=== PATIENT | male | born 1990 | race Caucasian/White ===

== ENCOUNTER 2016-10-02 14:42 | Emergency (ER) | payer BC ==
[2016-10-02 15:08] VITALS: RESP 18
[2016-10-02] MEDS ORDERED: PANTOPRAZOLE 40 MG/10 ML VIAL IVP STA (15:24)
[2016-10-02] MEDS ORDERED: MAG HYDROX/AL HYDROX/SIMETH 30 ML, HYOSCYAMINE ELIXIR 10 ML, CIMETIDINE HCL 300 MG, LID... PO STA ×4 (15:26)
[2016-10-02 15:42] LABS: Basophils % (A) 0 %; CHCM 33.7; Eosinophils # (A) 0.1 k/uL (0-0.7); Eosinophils % (A) 1 %; HCT 47.7 % (39.0-53.0); HDW 2.41; HGB 15.9 gm/dL (13.0-17.5); Luc # (Auto) 0.12; Luc % (Auto) 1; Lymphocytes % (A) 11 %; MCH 29.8 pg (25.0-35.0); MCHC 33.4 g/dL (31.0-37.0); MCV 89.2 fL (80.0-100.0); Mean Platelet Volume 7.5; Monocytes # (A) 0.4 k/uL (0-1.0); Monocytes % (A) 4 %; Neutrophils # (A) 7.5 k/uL (1.3-7.7); Neutrophils % (A) 83 %; RBC 5.34 m/uL (4.30-5.90); RDW 12.9 % (11.5-15.5); WBC (Perox) 9.25
[2016-10-02 15:55] LABS: Prothrombin Time 10.2 sec (9.0-12.0)
[2016-10-02 15:57] LABS: ALT 107 U/L (21-72); AST 43 U/L (17-59); Alkaline Phosphatase 69 U/L (38-126); Amylase 52 U/L (30-110); Anion Gap 11 mmol/L; Blood Urea Nitrogen 11 mg/dL (9-20); Calcium 10.1 mg/dL (8.4-10.2); Carbon Dioxide 28 mmol/L (22-30); Chloride 103 mmol/L (98-107); Creatine Kinase 107 U/L (55-170); Glucose 112 mg/dL (74-99); Magnesium 1.7 mg/dL (1.6-2.3); Non-African American GFR(MDRD) >60 (>60 ml/min/1.73 sqM); Potassium 4.5 mmol/L (3.5-5.1); Sodium 142 mmol/L (137-145); Total Bilirubin 0.5 mg/dL (0.2-1.3); Total Protein 7.2 g/dL (6.3-8.2)
--- NOTE | 2016-10-02 15:58 | XR ---
EXAMINATION TYPE: XR chest 2V DATE OF EXAM: 10/02/2016 3:55 PM HISTORY: Chest Pain. REFERENCE: NONE. FINDINGS: The lungs are clear. Pleural spaces are clear. Heart size is upper limits of normal. IMPRESSION: NO ACUTE INTRATHORACIC ABNORMALITY.
[2016-10-02 16:11] LABS: Creatine Kinase MB 0.9 ng/mL (0.0-2.4); Troponin I <0.012 ng/mL (0.000-0.034)
[2016-10-02 16:24] VITALS: BP 148/71; PULSE 60; TEMP 97.8
--- NOTE | 2016-10-02 16:47 | ED ---
Chest Pain HPI - General Chief Complaint: Chest Pain Stated Complaint: chest pain-[facility] Time Seen by Provider: 10/02/16 14:57 Source: patient Mode of arrival: ambulatory - History of Present Illness Initial Comments: This 26-year-old white male presents with the complaint of some lower sternal chest pain which describes as a burning type sensation. He states that it occurred at approximately 11:30 AM. He states that it occurred shortly after eating some spicy food. He also drank 5 beers last night. He states that it feels like heartburn. He denies any previous similar incidents. He is not utilize any nonsteroidal anti-inflammatory medications. He denies any actual abdominal pain or shortness of breath. There is no radiation of the pain. He denies any other complaints or modifying factors. - Related Data Previous Rx's Medication Instructions Recorded Omeprazole [PriLOSEC] 40 mg PO DAILY #30 capsule. 10/02/16 Allergies Allergy/AdvReac Type Severity Reaction Status Date / Time No Known Allergies Allergy Verified 10/02/16 15:13 Review of Systems ROS Statement: Those systems with pertinent positive or pertinent negative responses have been documented in the HPI. ROS Other: All systems not noted in ROS Statement are negative. Past Medical History Past Medical History: No Reported History History of Any Multi-Drug Resistant Organisms: None Reported Past Surgical History: Orthopedic Surgery Additional Past Surgical History / Comment(s): bilateral knee, Past Psychological History: No Psychological Hx Reported Smoking Status: Never smoker Past Alcohol Use History: Occasional Past Drug Use History: None Reported General Exam - General Exam Comments Initial Comments: GENERAL: The patient is well nourished and well hydrated. VITAL SIGNS: Heart rate, blood pressure, respiratory rate reviewed as recorded in nurse's notes. EYES: Pupils are round and reactive. Extraocular movements are intact. No conjunctival / lid redness or swelling. ENT: No external evidence of injury, swelling, or ecchymosis. Airway is patent. Throat is clear. NECK: Nontender. No swelling or evidence of injury. No subcutaneous emphysema. Trachea is midline. No thyroid mass. HEART: Regular rate and rhythm. Good peripheral pulses. LUNGS/CHEST: Breath sounds clear and equal bilaterally. No rales, rhonchi, or wheezes. No ecchymosis, subcutaneous emphysema, or tenderness. ABDOMEN: Abdomen soft without tenderness. No palpable masses or organomegaly. No peritoneal signs. No abdominal wall swelling or ecchymosis. EXTREMITIES: No extremity tenderness. Normal muscle tone and function. No thoracolumbar tenderness. NEUROLOGIC: Sensation is grossly intact. Cranial nerve exam reveals face is symmetrical, tongue is midline, speech is clear. SKIN: No abrasions or ecchymosis is noted. No induration or masses noted. PSYCHIATRIC: Alert and oriented. Appropriate behavior and judgment. Course Vital Signs 10/02/16 10/02/16 14:58 16:23 Temperature 98.0 F 97.8 F Pulse Rate 70 60 Respiratory 18 18 Rate Blood Pressure 169/88 148/71 O2 Sat by Pulse 100 98 Oximetry Chest Pain MDM - MDM The patient was seen and examined. All diagnostics were reviewed. An EKG was done which shows a normal sinus rhythm with a sinus arrhythmia at a rate of 65. There is no acute ST-T wave changes identified. The DC interval is 180, QS duration is 110, and the QTc interval is 413. The patient had a chest x-ray which did not show any acute abnormalities. The laboratory is all essentially within normal limits. He did receive some Protonix IV as well as a GI cocktail and some IV fluids. He is feeling remarkably improved on recheck. He states that the pain has resolved. Is not felt as though his symptoms are related to a cardiac etiology. It is felt as though it's likely related to some reflux and /or gastritis. His felt as though he stable for discharge. He is counseled regarding need to avoid any alcohol and spicy foods. He leaves in no identifiable distress. Disposition Clinical Impression: Chest pain, GERD (gastroesophageal reflux disease), Hypertension Disposition: HOME SELF-CARE Condition: Good Instructions: Chest Pain (ED), Gastroesophageal Reflux Disease (ED), Hypertension (ED) Prescriptions: Omeprazole [PriLOSEC] 40 mg PO DAILY #30 capsule.dr Referrals: Isaias Nguyen MD [Primary Care Provider] - 1-2 days Time of Disposition: 16:45
== END 2016-10-02 19:00 | disposition home or self-care (01) ==
LOC: EC 14:42
DX: R07.2 Precordial pain (principal); K21.9 Gastro-esophageal reflux disease without esophagitis; I10 Essential (primary) hypertension
CPT/HCPCS: 36415; 93005; 80053; 82150; 82550; 82553; 83690; 83735; 84484; 85025; 85610; 85730; 71020; 99285; 96374; C9113

== ENCOUNTER 2016-12-10 05:42 | Emergency (ER) | payer BC ==
[2016-12-10 05:49] VITALS: TEMP 97.7
[2016-12-10] MEDS ORDERED: MAG HYDROX/AL HYDROX/SIMETH 30 ML, HYOSCYAMINE ELIXIR 10 ML, CIMETIDINE HCL 300 MG PO STA ×3 (06:09)
--- NOTE | 2016-12-10 06:18 | ED ---
General Adult HPI - General Chief complaint: Chest Pain Stated complaint: Chest pain Time Seen by Provider: 12/10/16 06:00 Source: patient, RN notes reviewed Mode of arrival: wheelchair Limitations: no limitations - History of Present Illness Initial comments: This is a 26-year-old male who presents emergency department after having had some epigastric versus lower chest discomfort patient describes it as a burning sensation. Patient states he ate pizza later tonight had a couple of beers late at night. Patient states he woke up about 2:00 morning and some burning sensation in his chest so he took some tablets that were similar to Tums. Patient states shortly thereafter he ate an apple because he thought someone told him eating an apple would help. Patient states then he vomited and then the burning sensation was much worse. Patient denies any difficulty breathing or shortness of breath. Patient denies any recent fever chills or cough. Patient denies any radiation of the pain. Patient states she was here recently for similar and was diagnosed with gastric esophageal reflux. - Related Data Previous Rx's Medication Instructions Recorded Famotidine [Pepcid] 20 mg PO DAILY #10 tablet 12/10/16 Allergies Allergy/AdvReac Type Severity Reaction Status Date / Time No Known Allergies Allergy Verified 12/10/16 05:48 Review of Systems ROS Statement: Those systems with pertinent positive or pertinent negative responses have been documented in the HPI. ROS Other: All systems not noted in ROS Statement are negative. Past Medical History Past Medical History: No Reported History History of Any Multi-Drug Resistant Organisms: None Reported Past Surgical History: Orthopedic Surgery Additional Past Surgical History / Comment(s): bilateral knee, Past Psychological History: No Psychological Hx Reported Smoking Status: Never smoker Past Alcohol Use History: Occasional Past Drug Use History: None Reported General Exam - General Exam Comments Initial Comments: GENERAL: Patient is well-developed and well-nourished. Patient is nontoxic and well- hydrated and is in mild distress. ENT: Neck is soft and supple. No significant lymphadenopathy is noted. Oropharynx is clear. Moist mucous membranes. Neck has full range of motion without eliciting any pain. EYES: The sclera were anicteric and conjunctiva were pink and moist. Extraocular movements were intact and pupils were equal round and reactive to light. Eyelids were unremarkable. PULMONARY: Unlabored respirations. Good breath sounds bilaterally. No audible rales rhonchi or wheezing was noted. CARDIOVASCULAR: There is a regular rate and rhythm without any murmurs gallops or rubs. ABDOMEN: Soft and nontender with normal bowel sounds. No palpable organomegaly was noted. There is no palpable pulsatile mass. SKIN: Skin is clear with no lesions or rashes and otherwise unremarkable. NEUROLOGIC: Patient is alert and oriented x3. Cranial nerves II through XII are grossly intact. Motor and sensory are also intact. Normal speech, volume and content. Symmetrical smile. MUSCULOSKELETAL: Normal extremities with adequate strength and full range of motion. LYMPHATICS: No significant lymphadenopathy is noted PSYCHIATRIC: Normal psychiatric evaluation. Normal interpersonal interactions appears functionally intact in deals appropriately with others. No signs of depression. No signs of anxiety. Limitations: no limitations Course Vital Signs 12/10/16 12/10/16 05:46 06:46 Temperature 97.7 F Pulse Rate 63 66 Respiratory 18 17 Rate Blood Pressure 187/94 135/82 O2 Sat by Pulse 96 96 Oximetry Medical Decision Making - Medical Decision Making EKG shows a normal sinus rhythm at 63 bpm CA interval is 202 Christel 110 QT interval 420 QTC is 429. Patient's EKG shows no ST segment elevation or depression or T-wave abdomen is noted. Chest x-ray shows no acute abnormality. Patient received a GI cocktail and his pain almost completely resolved. - Lab Data Result diagrams: 12/10/16 05:55 12/10/16 05:55 Lab Results 12/10/16 12/10/16 12/10/16 Range/Units 05:55 05:55 05:55 WBC 8.1 (3.8-10.6) k/uL RBC 5.08 (4.30-5.90) m/uL Hgb 15.4 (13.0-17.5) gm/dL Hct 43.4 (39.0-53.0) % MCV 85.5 (80.0-100.0) fL MCH 30.3 (25.0-35.0) pg MCHC 35.5 (31.0-37.0) g/dL RDW 12.9 (11.5-15.5) % Plt Count 199 (150-450) k/uL Neutrophils % 63 % Lymphocytes % 24 % Monocytes % 7 % Eosinophils % 3 % Basophils % 1 % Neutrophils # 5.2 (1.3-7.7) k/uL Lymphocytes # 1.9 (1.0-4.8) k/uL Monocytes # 0.6 (0-1.0) k/uL Eosinophils # 0.2 (0-0.7) k/uL Basophils # 0.0 (0-0.2) k/uL PT 9.8 (9.0-12.0) sec INR 1.0 (<1.1) APTT 24.9 (22.0-30.0) sec Sodium 143 (137-145) mmol/L Potassium 4.0 (3.5-5.1) mmol/L Chloride 105 (98-107) mmol/L Carbon Dioxide 27 (22-30) mmol/L Anion Gap 11 mmol/L BUN 15 (9-20) mg/dL Creatinine 1.00 (0.66-1.25) mg/dL Est GFR (MDRD) Af Amer >60 (>60 ml/min/1.73 sqM) Est GFR (MDRD) Non-Af >60 (>60 ml/min/1.73 sqM) Glucose 101 H (74-99) mg/dL Calcium 9.6 (8.4-10.2) mg/dL Magnesium 2.0 (1.6-2.3) mg/dL Total Bilirubin 0.3 (0.2-1.3) mg/dL AST 45 (17-59) U/L ALT 130 H (21-72) U/L Alkaline Phosphatase 70 (38-126) U/L Total Protein 7.5 (6.3-8.2) g/dL Albumin 4.8 (3.5-5.0) g/dL Disposition Clinical Impression: GERD (gastroesophageal reflux disease) Disposition: HOME SELF-CARE Instructions: Chest Pain (ED), Gastroesophageal Reflux Disease (ED) Prescriptions: Famotidine [Pepcid] 20 mg PO DAILY #10 tablet Referrals: Isaias Nguyen MD [Primary Care Provider] - 1-2 days Time of Disposition: 07:07
[2016-12-10] MEDS ORDERED: PANTOPRAZOLE 40 MG TABLET PO STA (06:27)
[2016-12-10] MEDS ORDERED: PANTOPRAZOLE 40 MG/10 ML VIAL IVP STA (06:28)
[2016-12-10 06:29] LABS: Basophils % (A) 1 %; CH 30.1; CHCM 35.4; Eosinophils # (A) 0.2 k/uL (0-0.7); Eosinophils % (A) 3 %; HCT 43.4 % (39.0-53.0); HDW 2.53; HGB 15.4 gm/dL (13.0-17.5); Luc # (Auto) 0.23; Luc % (Auto) 3; Lymphocytes # (A) 1.9 k/uL (1.0-4.8); Lymphocytes % (A) 24 %; MCH 30.3 pg (25.0-35.0); MCHC 35.5 g/dL (31.0-37.0); MCV 85.5 fL (80.0-100.0); Mean Platelet Volume 7.2; Monocytes # (A) 0.6 k/uL (0-1.0); Monocytes % (A) 7 %; Neutrophils # (A) 5.2 k/uL (1.3-7.7); Neutrophils % (A) 63 %; RBC 5.08 m/uL (4.30-5.90); RDW 12.9 % (11.5-15.5); WBC 8.1 k/uL (3.8-10.6); WBC (Perox) 8.54
[2016-12-10 06:36] LABS: Prothrombin Time 9.8 sec (9.0-12.0)
[2016-12-10 06:37] LABS: Partial Thromboplastin Time 24.9 sec (22.0-30.0)
[2016-12-10 06:44] LABS: ALT 130 U/L (21-72); AST 45 U/L (17-59); Alkaline Phosphatase 70 U/L (38-126); Anion Gap 11 mmol/L; Blood Urea Nitrogen 15 mg/dL (9-20); Calcium 9.6 mg/dL (8.4-10.2); Carbon Dioxide 27 mmol/L (22-30); Chloride 105 mmol/L (98-107); Glucose 101 mg/dL (74-99); Non-African American GFR(MDRD) >60 (>60 ml/min/1.73 sqM); Sodium 143 mmol/L (137-145); Total Bilirubin 0.3 mg/dL (0.2-1.3); Total Protein 7.5 g/dL (6.3-8.2)
[2016-12-10 06:47] VITALS: BP 135/82; PULSE 66; RESP 17
[2016-12-10 06:55] LABS: Creatine Kinase 168 U/L (55-170)
--- NOTE | 2016-12-10 07:05 | XR ---
EXAM: XR Chest, 2 Views. CLINICAL HISTORY: Reason: Chest Pain TECHNIQUE: Frontal and lateral views of the chest. COMPARISON: 10/02/16. FINDINGS: Lungs: Unremarkable. No consolidation. Pleural spaces: Unremarkable. No pneumothorax. Heart: Unremarkable. No cardiomegaly. Mediastinum: Unremarkable. Bones: Unremarkable. No acute fracture. IMPRESSION: Normal chest.
[2016-12-10 07:08] LABS: Creatine Kinase MB 1.6 ng/mL (0.0-2.4); Troponin I <0.012 ng/mL (0.000-0.034)
== END 2016-12-10 07:27 | disposition home or self-care (01) ==
LOC: EC 05:42
DX: K21.9 Gastro-esophageal reflux disease without esophagitis (principal)
CPT/HCPCS: 36415; 93005; 80053; 82550; 82553; 83735; 84484; 85025; 85610; 85730; 71020; 99285; 96374; C9113

== ENCOUNTER 2017-01-13 06:55 | Emergency (ER) | payer BC ==
[2017-01-13 07:01] VITALS: RESP 18
[2017-01-13] MEDS ORDERED: MAG HYDROX/AL HYDROX/SIMETH 30 ML, HYOSCYAMINE ELIXIR 10 ML, CIMETIDINE HCL 300 MG, LID... PO STA ×4 (07:21)
[2017-01-13] MEDS ORDERED: ONDANSETRON 4 MG/2 ML VIAL IVP STA (07:21)
--- NOTE | 2017-01-13 07:25 | ED ---
Chest Pain HPI - General Chief Complaint: Chest Pain Stated Complaint: Chest Pain,heartburn Time Seen by Provider: 01/13/17 07:11 Source: patient, RN notes reviewed Mode of arrival: ambulatory Limitations: no limitations - History of Present Illness Initial Comments: This is a 26-year-old male with a history of heartburn who states he had the onset around 3:30 this morning of severe epigastric and lower sternal burning chest discomfort. He states it felt like heartburn is had before he states he had pizza at about 7:00 last night he states he has waxed and waned it did get better but now is an 8/10 in severity. He has nausea vomiting with it no diarrhea no fevers chills or sweats no shortness of breath. He does admit that he does drink alcohol and at times does drink a lot he does not smoke cigarettes. He has no prior history of gallbladder disease or ulcers. MD Complaint: chest pain, other - Related Data Previous Rx's Medication Instructions Recorded Famotidine [Pepcid] 20 mg PO DAILY #10 tablet 12/10/16 Allergies Allergy/AdvReac Type Severity Reaction Status Date / Time No Known Allergies Allergy Verified 01/13/17 07:01 Review of Systems ROS Statement: Those systems with pertinent positive or pertinent negative responses have been documented in the HPI. ROS Other: All systems not noted in ROS Statement are negative. EKG Findings - EKG Results: EKG: interpreted by ELOISA, sinus rhythm (Sinus bradycardia with a rate of 55 VT interval 174 QRS 110 daily since QTC of 442/422 sinus arrhythmia no acute ST-T wave changes.) Past Medical History Past Medical History: GERD/Reflux History of Any Multi-Drug Resistant Organisms: None Reported Past Surgical History: Orthopedic Surgery Additional Past Surgical History / Comment(s): bilateral knee, Past Psychological History: No Psychological Hx Reported Smoking Status: Never smoker Past Alcohol Use History: Occasional Past Drug Use History: None Reported General Exam - General Exam Comments Initial Comments: This is a well-developed well-nourished awake alert oriented times 3 male Limitations: no limitations General appearance: alert, anxious, in distress Head exam: Present: atraumatic, normocephalic, normal inspection Eye exam: Present: normal appearance, PERRL, EOMI. Absent: scleral icterus, conjunctival injection, periorbital swelling ENT exam: Present: normal exam, mucous membranes moist Neck exam: Present: normal inspection. Absent: tenderness, meningismus, lymphadenopathy Respiratory exam: Present: normal lung sounds bilaterally. Absent: respiratory distress, wheezes, rales, rhonchi, stridor Cardiovascular Exam: Present: regular rate, normal rhythm, normal heart sounds. Absent: systolic murmur, diastolic murmur, rubs, gallop, clicks GI/Abdominal exam: Present: soft, tenderness (Epigastric tenderness to palpation no definite guarding or rebound.), normal bowel sounds. Absent: distended, guarding, rebound, rigid Rectal exam: Present: deferred Extremities exam: Present: normal inspection, full ROM, normal capillary refill. Absent: tenderness, pedal edema, joint swelling, calf tenderness Back exam: Present: normal inspection Neurological exam: Present: alert, oriented X3, CN II-XII intact Psychiatric exam: Present: normal affect, normal mood Skin exam: Present: warm, dry, intact, normal color. Absent: rash Course Vital Signs 01/13/17 06:59 Temperature 96.7 F L Pulse Rate 65 Respiratory 18 Rate Blood Pressure 190/107 O2 Sat by Pulse 100 Oximetry Chest Pain MDM - MDM Imaging is unremarkable I did review the x-ray and report. Patient initially much improved after the medication was given. This is now his third time he states these come the emergency Department for similar pain. He does have medication at home but he was not taking it he states the last time he had the medication helped for about a week and he quit taking because he didn't need anymore now he has a recurrent attack. I did recommend follow-up with his doctor for referral for outpatient upper endoscopy. He does agree with this. I did also cautioned him about drinking alcohol and caffeinated beverages. He will be discharged. Disposition Clinical Impression: Acute gastritis, Atypical chest pain Disposition: HOME SELF-CARE Condition: Good Instructions: Gastritis (ED) Additional Instructions: Proceed with taking her medications were previously prescribed for your stomach. Referrals: Isaias Nguyen MD [Primary Care Provider] - 1-2 days
[2017-01-13 07:49] LABS: Basophils # (A) 0.1 k/uL (0-0.2); Basophils % (A) 1 %; CH 30.1; CHCM 34.3; Eosinophils # (A) 0.2 k/uL (0-0.7); Eosinophils % (A) 2 %; HCT 48.3 % (39.0-53.0); HDW 2.36; HGB 16.4 gm/dL (13.0-17.5); Luc # (Auto) 0.18; Luc % (Auto) 2; Lymphocytes # (A) 1.8 k/uL (1.0-4.8); Lymphocytes % (A) 24 %; MCH 29.9 pg (25.0-35.0); MCHC 33.9 g/dL (31.0-37.0); MCV 88.2 fL (80.0-100.0); Mean Platelet Volume 7.9; Monocytes # (A) 0.4 k/uL (0-1.0); Monocytes % (A) 6 %; Neutrophils # (A) 4.8 k/uL (1.3-7.7); Neutrophils % (A) 64 %; RBC 5.48 m/uL (4.30-5.90); RDW 13.2 % (11.5-15.5); WBC 7.5 k/uL (3.8-10.6); WBC (Perox) 6.92
[2017-01-13 07:58] LABS: ALT 197 U/L (21-72); AST 70 U/L (17-59); Alkaline Phosphatase 62 U/L (38-126); Amylase 43 U/L (30-110); Anion Gap 9 mmol/L; Blood Urea Nitrogen 13 mg/dL (9-20); Calcium 9.7 mg/dL (8.4-10.2); Carbon Dioxide 28 mmol/L (22-30); Chloride 104 mmol/L (98-107); Glucose 101 mg/dL (74-99); Non-African American GFR(MDRD) >60 (>60 ml/min/1.73 sqM); Partial Thromboplastin Time 24.2 sec (22.0-30.0); Potassium 4.1 mmol/L (3.5-5.1); Prothrombin Time 10.2 sec (9.0-12.0); Sodium 141 mmol/L (137-145); Total Bilirubin 0.4 mg/dL (0.2-1.3); Total Protein 7.1 g/dL (6.3-8.2)
[2017-01-13] MEDS ORDERED: KETOROLAC 30 MG/ML 1 ML VIAL IVP STA (08:00)
--- NOTE | 2017-01-13 08:00 | XR ---
EXAMINATION TYPE: XR chest 2V DATE OF EXAM: 01/13/2017 COMPARISON: Chest x-ray December 10, 2016 HISTORY: Heartburn and chest pain. TECHNIQUE: Frontal and lateral views of the chest are obtained. FINDINGS: There is no focal air space opacity, pleural effusion, or pneumothorax seen. The cardiac silhouette size is within normal limits. The osseous structures are intact. IMPRESSION: No acute process. No significant change from prior.
[2017-01-13 08:04] LABS: Creatine Kinase 264 U/L (55-170)
[2017-01-13 08:17] LABS: Troponin I <0.012 ng/mL (0.000-0.034)
[2017-01-13 08:18] LABS: Creatine Kinase MB 3.3 ng/mL (0.0-2.4)
[2017-01-13] MEDS ORDERED: FAMOTIDINE 20 MG/2 ML VIAL IV STA (08:25)
[2017-01-13 09:00] VITALS: BP 132/73; PULSE 60; TEMP 97.9
== END 2017-01-13 09:00 | disposition home or self-care (01) ==
LOC: EC 06:55
DX: K29.70 Gastritis, unspecified, without bleeding (principal); R07.89 Other chest pain; K21.9 Gastro-esophageal reflux disease without esophagitis
CPT/HCPCS: 96374 ×2; 96375 ×2; 99285 ×2; 36415; 93005; 85379; 80053; 82150; 82550; 82553; 83690; 83735; 84484; 85025; 85610; 85730; 71020; J2405; J1885

== ENCOUNTER 2017-08-04 03:30 | Emergency (ER) | payer BC ==
[2017-08-04] MEDS ORDERED: MAG HYDROX/AL HYDROX/SIMETH 30 ML, HYOSCYAMINE ELIXIR 10 ML, CIMETIDINE HCL 300 MG, LID... PO STA ×4 (03:54)
--- NOTE | 2017-08-04 04:00 | ED ---
Chest Pain HPI - General Chief Complaint: Chest Pain Stated Complaint: Heartburn Time Seen by Provider: 08/04/17 03:50 Source: patient, family, RN notes reviewed Mode of arrival: ambulatory - History of Present Illness Initial Comments: This is a 26-year-old male with a history of GERD who states he had the onset prior to admission of severe mid epigastric lower sternal steady 9/10 burning pain. He states it feels similar to pain he's had in the past that resolved after taking a GI cocktail. He denies any cough fevers chills nausea vomiting sweats he states it does get somewhat worse with movement. MD Complaint: chest pain - Related Data Previous Rx's Medication Instructions Recorded Famotidine [Pepcid] 20 mg PO DAILY #10 tablet 12/10/16 Pantoprazole Sodium [Protonix] 20 mg PO AC-BID #20 tablet. 08/04/17 Allergies Allergy/AdvReac Type Severity Reaction Status Date / Time No Known Allergies Allergy Verified 08/04/17 03:38 Review of Systems ROS Statement: Those systems with pertinent positive or pertinent negative responses have been documented in the HPI. ROS Other: All systems not noted in ROS Statement are negative. EKG Findings - EKG Results: EKG: interpreted by ERMRamin (Sinus bradycardia with a rate of 54 [place] interval 168 QRS 94 QT/QTC of 420/398 this is a normal-appearing but bradycardic EKG) Past Medical History Past Medical History: GERD/Reflux History of Any Multi-Drug Resistant Organisms: None Reported Past Surgical History: Orthopedic Surgery Additional Past Surgical History / Comment(s): bilateral knee, Past Psychological History: No Psychological Hx Reported Smoking Status: Never smoker Past Alcohol Use History: Occasional Past Drug Use History: None Reported General Exam - General Exam Comments Initial Comments: This a well-developed well-nourished awake alert oriented 3 male General appearance: alert, anxious Head exam: Present: atraumatic, normocephalic, normal inspection Eye exam: Present: normal appearance, PERRL, EOMI. Absent: scleral icterus, conjunctival injection, periorbital swelling ENT exam: Present: normal exam, mucous membranes moist Neck exam: Present: normal inspection. Absent: tenderness, meningismus, lymphadenopathy Respiratory exam: Present: normal lung sounds bilaterally. Absent: respiratory distress, wheezes, rales, rhonchi, stridor, chest wall tenderness Cardiovascular Exam: Present: regular rate, normal rhythm, normal heart sounds. Absent: systolic murmur, diastolic murmur, rubs, gallop, clicks GI/Abdominal exam: Present: soft, tenderness (Mild epigastric discomfort to palpation no guarding rebound masses or bruits), normal bowel sounds. Absent: distended, guarding, rebound, rigid Extremities exam: Present: normal inspection, full ROM, normal capillary refill. Absent: tenderness, pedal edema, joint swelling, calf tenderness Back exam: Present: normal inspection Neurological exam: Present: alert, oriented X3, CN II-XII intact Psychiatric exam: Present: normal affect, normal mood Skin exam: Present: warm, dry, intact, normal color. Absent: rash Course Vital Signs 08/04/17 03:34 Temperature 97 F L Pulse Rate 57 L Respiratory 20 Rate Blood Pressure 212/105 O2 Sat by Pulse 100 Oximetry Chest Pain MDM - MDM Patient showing much improved after the glucagon. He will be discharged the presentation is consistent with reflux and esophageal spasm. I did recommend he follow-up with his doctor and get a EGD scheduled. Disposition Clinical Impression: Gastroesophageal reflux, Esophageal spasm Disposition: HOME SELF-CARE Condition: Good Instructions: Gastroesophageal Reflux Disease (ED), Esophageal Spasm (ED) Prescriptions: Pantoprazole Sodium [Protonix] 20 mg PO AC-BID #20 tablet.dr Referrals: Isaias Nguyen MD [Primary Care Provider] - 1-2 days
[2017-08-04] MEDS ORDERED: GLUCAGON 1 MG/ML VIAL IVP STA (04:33)
[2017-08-04 05:37] VITALS: BP 143/78; PULSE 72; RESP 18; TEMP 97.8
== END 2017-08-04 05:37 | disposition home or self-care (01) ==
LOC: EC 03:30
DX: K21.9 Gastro-esophageal reflux disease without esophagitis (principal); K22.4 Dyskinesia of esophagus
CPT/HCPCS: 93005; 99285; 96374; J1610

== ENCOUNTER 2017-09-20 09:15 | Day surgery (SDC) | payer BC ==
[2017-09-18 09:57] VITALS: BMI 33.1
[~2017-09-20 09:15] MED LIST: LACTATED RINGERS 1,000 ML IV SCH; LIDOCAINE 1% 20 ML VIAL (10MG/ML) FOR IV START INTRADERMA PRN
[2017-09-20 09:33] VITALS: TEMP 98
[2017-09-20] MEDS ORDERED: LIDOCAINE 1% INJ 10MG/ML (20 ML MDV) ONE (10:22)
[2017-09-20] MEDS ORDERED: PROPOFOL 10 MG/ML 20 ML VIAL IV ONE (10:22)
[2017-09-20] MEDS ORDERED: fentaNYL (PF) 50 MCG/ML 2 ML AMP ONE (10:22)
[2017-09-20 11:00] VITALS: BP 150/88; PULSE 66; RESP 16
--- NOTE | 2017-09-20 11:23 | P.PCN ---
Date of Procedure: 09/20/17 Procedure(s) Performed: Procedure: Esophagogastroduodenoscopy and biopsy. Preoperative diagnosis: History of reflux disease and atypical chest pain. Postoperative diagnosis: 1. Small sliding hiatal hernia with possible low-grade esophagitis but no evidence of complicated reflux disease. 2. Mild antral gastritis and duodenitis. 3. Multiple biopsies obtained from the duodenum, antrum and esophagus. Preparation and sedation: Was provided by anesthesia. Brief clinical history: The patient is a 27-year-old male who is scheduled for this evaluation for the above reasons. The patient has been having episodes of chest pain over the last year. He give history of acid reflux. No other alarm symptoms. This evaluation is to assess for esophagitis and possible complicated reflux disease. Procedure: With the patient on his left lateral decubitus position and after informed consent and adequate sedation, I passed the Olympus-GIF 160 video upper endoscope through the cricopharyngeus down the esophagus. GE junction was around 40-41 cm from the incisors and there was a small sliding hiatal hernia. The esophagus showed minimal erythema close to the GE junction but no obvious erosions, ulcers, strictures or Kruse's esophagus. The endoscope was then passed into the stomach which was insufflated with air and inspected in detail including the retroflex view in the cardia. There was minimal mottling and erythema in the antrum but no ulcers or erosions. Pyloric channel did not show any ulcers. Duodenal bulb showed some erythema and minimal friability. Post bulbar area and descending duodenum appeared within normal limits. Because of his symptoms, I obtained biopsies from the duodenum, antrum and esophagus then the endoscope was withdrawn. The patient tolerated the procedure well. Plan: The patient was reassured. He will follow-up with you as planned. Will await pathology results and make further recommendations based on his course and biopsy results. I will keep you updated on her progress.
== END 2017-09-20 11:34 | disposition home or self-care (01) ==
LOC: ORWHC2ENDO 09:15
DX: K29.80 Duodenitis without bleeding (principal); K31.9 Disease of stomach and duodenum, unspecified; K21.0 Gastro-esophageal reflux disease with esophagitis; K44.9 Diaphragmatic hernia without obstruction or gangrene; K29.70 Gastritis, unspecified, without bleeding; Z79.899 Other long term (current) drug therapy
CPT/HCPCS: 88305; 43239; J2001; J3010; J2704

== ENCOUNTER 2020-09-25 00:24 | Observation (INO) | payer BC ==
[2020-09-25] MEDS ORDERED: SODIUM CHLORIDE 0.9% 1,000 ML IV STA (00:49)
[2020-09-25] MEDS ORDERED: ONDANSETRON 4 MG/2 ML VIAL IVP STA (00:49)
[2020-09-25] MEDS ORDERED: FAMOTIDINE 20 MG/2 ML VIAL IV STA (00:49)
[2020-09-25] MEDS ORDERED: MORPHINE SULFATE 4 MG/ML SYRINGE IVP STA (00:50)
[2020-09-25 01:31] LABS: Basophils % (A) 0 %; Eosinophils % (A) 0 %; HCT 44.2 % (39.0-53.0); HGB 15.3 gm/dL (13.0-17.5); Lymphocytes # (A) 0.7 k/uL (1.0-4.8); Lymphocytes % (A) 6 %; MCH 29.5 pg (25.0-35.0); MCHC 34.5 g/dL (31.0-37.0); MCV 85.5 fL (80.0-100.0); Mean Platelet Volume 7.7; Monocytes # (A) 0.3 k/uL (0-1.0); Monocytes % (A) 3 %; Neutrophils % (A) 91 %; Platelet Count 259 k/uL (150-450); RBC 5.17 m/uL (4.30-5.90); RDW 12.6 % (11.5-15.5); WBC 13.1 k/uL (3.8-10.6)
[2020-09-25 01:42] LABS: ALT 40 U/L (4-49); AST 31 U/L (17-59); African American GFR (CKD) >90 (>60 ml/min/1.73 sqM); Albumin 4.9 g/dL (3.5-5.0); Alkaline Phosphatase 123 U/L (38-126); Amylase 38 U/L (30-110); Anion Gap 12 mmol/L; Blood Urea Nitrogen 10 mg/dL (9-20); Calcium 9.6 mg/dL (8.4-10.2); Carbon Dioxide 22 mmol/L (22-30); Chloride 104 mmol/L (98-107); Glucose 130 mg/dL (74-99); Lipase 59 U/L (23-300); Non-African American GFR(CKD) >90 (>60 ml/min/1.73 sqM); Potassium 4.4 mmol/L (3.5-5.1); Sodium 138 mmol/L (137-145); Total Bilirubin 0.6 mg/dL (0.2-1.3); Total Protein 7.7 g/dL (6.3-8.2)
[2020-09-25 01:47] LABS: Appearance,Urine Clear (Clear); Bilirubin,Urine Negative (Negative); Blood,Urine Negative (Negative); Color,Urine Yellow; Glucose,Urine (UA) Negative (Negative); Ketones,Urine 3+ (Negative); Leukocyte Esterase,Urine Negative (Negative); Nitrite,Urine Negative (Negative); Protein,Urine Trace (Negative); Specific Gravity,Urine 1.026 (1.001-1.035); Urobilinogen,Urine <2.0 mg/dL (<2.0)
--- NOTE | 2020-09-25 01:54 | CT ---
EXAM: CT Abdomen and Pelvis With Intravenous Contrast CLINICAL HISTORY: ITS.REASON CT Reason: abdominal pain, epigastric pain TECHNIQUE: Axial computed tomography images of the abdomen and pelvis with intravenous contrast. CTDI is 1070.90 mGy and DLP is 23.77 mGy-cm. This CT exam was performed using one or more of the following dose reduction techniques: automated exposure control, adjustment of the mA and/or kV according to patient size, and/or use of iterative reconstruction technique. COMPARISON: 08/06/2017. FINDINGS: Mediastinum: There is some mild distal esophageal wall thickening. ABDOMEN: Liver: Low-attenuation throughout the liver. Gallbladder and bile ducts: Gallstones in the lumen and neck. There is suggestion of some mild gallbladder wall thickening. No pericholecystic fluid. No ductal dilation. Pancreas: Unremarkable. No mass. No ductal dilation. Spleen: Unremarkable. No splenomegaly. Adrenals: Unremarkable. No mass. Kidneys and ureters: Unremarkable. No solid mass. No hydronephrosis. Stomach and bowel: Underdistention of the left colon. No mucosal thickening. No bowel obstruction. PELVIS: Appendix: No findings to suggest acute appendicitis. Bladder: Unremarkable. No mass. Reproductive: Unremarkable as visualized. ABDOMEN and PELVIS: Intraperitoneal space: Unremarkable. No free air. No significant fluid collection. Bones/joints: No acute fracture. No dislocation. Soft tissues: Unremarkable. Vasculature: Unremarkable. No abdominal aortic aneurysm. Lymph nodes: Unremarkable. No enlarged lymph nodes. IMPRESSION: 1. Cholelithiasis. Questionable mild gallbladder wall thickening. Acute calculus cholecystitis is in the differential. Ultrasound could be done for further evaluation. 2. Hepatic steatosis. 3. Mild distal esophageal wall thickening may represents esophagitis.
[2020-09-25] MEDS ORDERED: MAG HYDROX/AL HYDROX/SIMETH 30 ML, HYOSCYAMINE ELIXIR 10 ML, LIDOCAINE VISCOUS 2% 10 ML PO STA ×3 (02:11)
--- NOTE | 2020-09-25 02:11 | ED ---
General Adult HPI - General Chief complaint: Abdominal Pain Stated complaint: Heartburn Source: patient, RN notes reviewed Mode of arrival: ambulatory Limitations: no limitations - History of Present Illness Initial comments: 30-year-old male with a past medical history of GERD presents to the complaint of reflux. Patient states he often gets reflux and has been taking his Pepcid but states for the past couple days it has been worse than normal. States that his medications do not seem to be helping. Patient states he has vomited a few times this evening. He denies diarrhea. Denies fevers. States the pain is across the upper abdomen. States that he came in to get some relief so he could sleep.Patient has no other complaints at this time including shortness of gualberto th, chest pain, nausea or vomiting, headache, or visual changes. - Related Data Home Medications Medication Instructions Recorded Confirmed Pantoprazole Sodium [Protonix] 20 mg PO DAILY PRN 08/06/17 09/20/17 Multivitamin [Men's Multi-Vitamin] 1 each PO DAILY 09/18/17 09/20/17 Allergies Allergy/AdvReac Type Severity Reaction Status Date / Time No Known Allergies Allergy Verified 09/25/20 00:27 Review of Systems ROS Statement: Those systems with pertinent positive or pertinent negative responses have been documented in the HPI. ROS Other: All systems not noted in ROS Statement are negative. Past Medical History Past Medical History: GERD/Reflux History of Any Multi-Drug Resistant Organisms: None Reported Past Surgical History: Orthopedic Surgery Additional Past Surgical History / Comment(s): bilateral knee ARTHROSCOPIC, HYDROCELE Past Anesthesia/Blood Transfusion Reactions: No Reported Reaction Past Psychological History: No Psychological Hx Reported Smoking Status: Never smoker Past Alcohol Use History: Occasional Past Drug Use History: None Reported - Past Family History Mother Family Medical History: No Reported History General Exam Limitations: no limitations General appearance: alert, in no apparent distress Head exam: Present: atraumatic, normocephalic, normal inspection Eye exam: Present: normal appearance, PERRL, EOMI. Absent: scleral icterus, conjunctival injection, periorbital swelling ENT exam: Present: normal exam, mucous membranes moist Neck exam: Present: normal inspection, full ROM. Absent: tenderness, meningismus, lymphadenopathy Respiratory exam: Present: normal lung sounds bilaterally. Absent: respiratory distress, wheezes, rales, rhonchi, stridor Cardiovascular Exam: Present: regular rate, normal rhythm, normal heart sounds. Absent: systolic murmur, diastolic murmur, rubs, gallop, clicks GI/Abdominal exam: Present: soft, tenderness (Tenderness noted in the left upper quadrant, epigastric, and right upper quadrant areas. No lower abdominal tenderness.), normal bowel sounds. Absent: distended, guarding, rebound, rigid Neurological exam: Present: alert Course Vital Signs 09/25/20 09/25/20 00:24 02:05 Temperature 98.1 F Pulse Rate 58 L 72 Respiratory 18 20 Rate Blood Pressure 176/111 149/93 O2 Sat by Pulse 100 97 Oximetry Medical Decision Making - Medical Decision Making Vitals are stable. HPI physical exam a speculum. Patient does have mild leukocytosis with a white blood cell count of 13.1. CMP is unremarkable. Amylase and lipase are normal. Urinalysis does show 3+ ketones, patient was given a liter of fluid.CT abdomen and pelvis did reveal mild distal esophageal wall thickening that may represent esophagitis. Cholelithiasis with questionable mild gallbladder wall thickening. Acute calculus cholecystitis is in the differential. I did reevaluate patient, pain is only improved from a 7 to a 6 after Pepcid, Zofran, morphine. States is still painful to move at all. Patient states this does feel different than his normal GERD. Given the CT findings as well as intractable pain we will admit patient for surgery consultation. - Lab Data Result diagrams: 09/25/20 01:00 09/25/20 01:00 Lab Results 09/25/20 09/25/20 09/25/20 Range/Units 01:00 01:00 01:00 WBC 13.1 H (3.8-10.6) k/uL RBC 5.17 (4.30-5.90) m/uL Hgb 15.3 (13.0-17.5) gm/dL Hct 44.2 (39.0-53.0) % MCV 85.5 (80.0-100.0) fL MCH 29.5 (25.0-35.0) pg MCHC 34.5 (31.0-37.0) g/dL RDW 12.6 (11.5-15.5) % Plt Count 259 (150-450) k/uL MPV 7.7 Neutrophils % 91 % Lymphocytes % 6 % Monocytes % 3 % Eosinophils % 0 % Basophils % 0 % Neutrophils # 12.0 H (1.3-7.7) k/uL Lymphocytes # 0.7 L (1.0-4.8) k/uL Monocytes # 0.3 (0-1.0) k/uL Eosinophils # 0.0 (0-0.7) k/uL Basophils # 0.0 (0-0.2) k/uL Sodium 138 (137-145) mmol/L Potassium 4.4 (3.5-5.1) mmol/L Chloride 104 (98-107) mmol/L Carbon Dioxide 22 (22-30) mmol/L Anion Gap 12 mmol/L BUN 10 (9-20) mg/dL Creatinine 0.77 (0.66-1.25) mg/dL Est GFR (CKD-EPI)AfAm >90 (>60 ml/min/1.73 sqM) Est GFR (CKD-EPI)NonAf >90 (>60 ml/min/1.73 sqM) Glucose 130 H (74-99) mg/dL Calcium 9.6 (8.4-10.2) mg/dL Total Bilirubin 0.6 (0.2-1.3) mg/dL AST 31 (17-59) U/L ALT 40 (4-49) U/L Alkaline Phosphatase 123 (38-126) U/L Total Protein 7.7 (6.3-8.2) g/dL Albumin 4.9 (3.5-5.0) g/dL Amylase 38 (30-110) U/L Lipase 59 (23-300) U/L Urine Color Yellow Urine Appearance Clear (Clear) Urine pH 6.0 (5.0-8.0) Ur Specific [place] 1.026 (1.001-1.035) Urine Protein Trace H (Negative) Urine Glucose (UA) Negative (Negative) Urine Ketones 3+ H (Negative) Urine Blood Negative (Negative) Urine Nitrite Negative (Negative) Urine Bilirubin Negative (Negative) Urine Urobilinogen <2.0 (<2.0) mg/dL Ur Leukocyte Esterase Negative (Negative) Disposition Clinical Impression: Intractable abdominal pain, Leukocytosis, Esophagitis, GERD (gastroesophageal reflux disease) Narrative: Possible calculous cholecystitis Disposition: ADMITTED IP TO THIS HOSP Is patient prescribed a controlled substance at d/c from ED?: No Referrals: Isaias Nguyen MD [Primary Care Provider] - 1-2 days Time of Disposition: 02:21
[2020-09-25] MEDS ORDERED: NALOXONE 0.4 MG/ML 1 ML VIAL IV PRN (02:21)
[2020-09-25] MEDS: SODIUM CHLORIDE 0.9% 1,000 ML IV SCH ×3 (03:00→20:46)
[2020-09-25] MEDS: HYDROmorphone 0.5 MG/0.5 ML SYRINGE IVP PRN ×3 (05:02→18:54)
[2020-09-25] MEDS: ONDANSETRON 4 MG/2 ML VIAL IVP PRN ×2 (05:02→14:33)
[2020-09-25] MEDS: PANTOPRAZOLE 40 MG/10 ML VIAL IV SCH (06:57)
--- NOTE | 2020-09-25 09:07 | US ---
EXAMINATION TYPE: US gallbladder DATE OF EXAM: 09/25/2020 COMPARISON: CT today CLINICAL HISTORY: pain EXAM MEASUREMENTS: Liver Length: 14.3cm Gallbladder Wall: 0.5 CBD: 0.4 cm Right Kidney: 11.4 x 5.6 x 5.3 cm Extensive overlying bowel gas, technically difficult study. Pancreas: obscured by overlying bowel gas Liver: limited visualization due to overlying bowel gas Gallbladder: cholelithiasis Evidence for sonographic Sterling's sign: no CBD:wnl Right Kidney: wnl IMPRESSION: Cholelithiasis
--- NOTE | 2020-09-25 15:07 | P.GSCN ---
History of Present Illness History of present illness: This is a 30-year-old male presents the hospital with a chief complaint of midepigastric pain consistent with his existing gastroesophageal reflux disease. He stated it got worse at the day the night before he had eaten buffalo chicken [place]. He is on Pepcid home. He states that later on in the afternoon he started taking his medication however at that point it was too late in the GERD had gotten worse he had some nausea and vomiting this brought him to the emergency department. He states that today he is feeling better since getting treated with Pepcid and fluids. He started on a clear liquid diet and he is tolerating that at this time. He is still having minor amount of nausea. He was seen to have cholelithiasis on ultrasound however no significant color wall thickening or pericholecystic fluid to indicate acute cholecystitis. He denies any right upper quadrant pain he denies any A nothing around to his back right shoulder pain. He's never had an EGD before in the past. Past Medical History Past Medical History: GERD/Reflux History of Any Multi-Drug Resistant Organisms: None Reported Past Surgical History: Orthopedic Surgery Additional Past Surgical History / Comment(s): bilateral knee ARTHROSCOPIC, HYDROCELE Past Anesthesia/Blood Transfusion Reactions: No Reported Reaction Past Psychological History: No Psychological Hx Reported Smoking Status: Never smoker Past Alcohol Use History: Occasional Past Drug Use History: None Reported - Past Family History Mother Family Medical History: No Reported History Medications and Allergies Home Medications Medication Instructions Recorded Confirmed Type Acetaminophen [Children's Tylenol] 320 mg PO Q4H PRN 09/25/20 09/25/20 History Calcium Carbonate [Tums] 1,000 mg PO TID PRN 09/25/20 09/25/20 History Famotidine [Pepcid] 40 mg PO BID 09/25/20 09/25/20 History Magnesium Hydroxide [Milk of 800 mg PO ONCE PRN 09/25/20 09/25/20 History Magnesia] Allergies Allergy/AdvReac Type Severity Reaction Status Date / Time No Known Allergies Allergy Verified 09/25/20 09:12 Surgical - Exam Osteopathic Statement: *. No significant issues noted on an osteopathic structural exam other than those noted in the History and Physical/Consult. Vital Signs Temp Pulse Resp BP Pulse Ox 98.1 F 58 L 18 176/111 100 09/25/20 00:24 09/25/20 00:24 09/25/20 00:24 09/25/20 00:24 09/25/20 00:24 - General well developed, well nourished, no distress - Respiratory normal expansion, normal respiratory effort - Abdomen Abdomen: soft, non tender - Psychiatric oriented to time, oriented to person, oriented to place Results - Labs 09/25/20 01:00 09/25/20 01:00 Abnormal Lab Results - Last 24 Hours (Table) 09/25/20 09/25/20 09/25/20 Range/Units 01:00 01:00 01:00 WBC 13.1 H (3.8-10.6) k/uL Neutrophils # 12.0 H (1.3-7.7) k/uL Lymphocytes # 0.7 L (1.0-4.8) k/uL Glucose 130 H (74-99) mg/dL Urine Protein Trace H (Negative) Urine Ketones 3+ H (Negative) Diabetes panel 09/25/20 Range/Units 01:00 Sodium 138 (137-145) mmol/L Potassium 4.4 (3.5-5.1) mmol/L Chloride 104 (98-107) mmol/L Carbon Dioxide 22 (22-30) mmol/L BUN 10 (9-20) mg/dL Creatinine 0.77 (0.66-1.25) mg/dL Glucose 130 H (74-99) mg/dL Calcium 9.6 (8.4-10.2) mg/dL AST 31 (17-59) U/L ALT 40 (4-49) U/L Alkaline Phosphatase 123 (38-126) U/L Total Protein 7.7 (6.3-8.2) g/dL Albumin 4.9 (3.5-5.0) g/dL Calcium panel 09/25/20 Range/Units 01:00 Calcium 9.6 (8.4-10.2) mg/dL Albumin 4.9 (3.5-5.0) g/dL Pituitary panel 09/25/20 Range/Units 01:00 Sodium 138 (137-145) mmol/L Potassium 4.4 (3.5-5.1) mmol/L Chloride 104 (98-107) mmol/L Carbon Dioxide 22 (22-30) mmol/L BUN 10 (9-20) mg/dL Creatinine 0.77 (0.66-1.25) mg/dL Glucose 130 H (74-99) mg/dL Calcium 9.6 (8.4-10.2) mg/dL Adrenal panel 09/25/20 Range/Units 01:00 Sodium 138 (137-145) mmol/L Potassium 4.4 (3.5-5.1) mmol/L Chloride 104 (98-107) mmol/L Carbon Dioxide 22 (22-30) mmol/L BUN 10 (9-20) mg/dL Creatinine 0.77 (0.66-1.25) mg/dL Glucose 130 H (74-99) mg/dL Calcium 9.6 (8.4-10.2) mg/dL Total Bilirubin 0.6 (0.2-1.3) mg/dL AST 31 (17-59) U/L ALT 40 (4-49) U/L Alkaline Phosphatase 123 (38-126) U/L Total Protein 7.7 (6.3-8.2) g/dL Albumin 4.9 (3.5-5.0) g/dL Assessment and Plan Assessment: Exacerbation of GERD and esophagitis Plan: Patient did have distal esophageal thickening consistent with chronic acid reflux. Given that he had buffalo chicken positive the night before this is likely an exacerbation of his GERD. He does have cholelithiasis and this can be worked up as an outpatient. I do recommend that the patient received Augmentin in the event that there is some inflammation his gallbladder however I think it's more likely that he has acute on chronic esophagitis and gastritis. He could benefit from an EGD as an outpatient and be happy seen in my office next week if he wants to go home. Recommend continuing omeprazole 40 mg twice a day and adding Carafate in suspension 4 times a day. If after EGD the patient appears to have no esophagitis or gastritis we would consider laparoscopic cholecystectomy for symptomatic cholelithiasis. No plans for acute surgical intervention at this time
[2020-09-25] MEDS: SUCRALFATE 1 GM TAB PO SCH ×2 (17:16→20:46)
[2020-09-25] MEDS: AMOXIC-POT CLAV 875-125MG 1 EACH TAB PO SCH (20:45)
[2020-09-26] MEDS: ONDANSETRON 4 MG/2 ML VIAL IVP PRN ×3 (00:25→15:28)
[2020-09-26] MEDS: HYDROmorphone 0.5 MG/0.5 ML SYRINGE IVP PRN ×2 (00:28→08:26)
--- NOTE | 2020-09-26 00:54 | P.HPIM ---
History of Present Illness H&P Date: 09/25/20 Chief Complaint: Adbominal pain Mr. Arias is a 30-year-old male with a past medical history of chronic GERD for the past 1 year on PPI coming in with a chief complaint of epigastric pain associated with nausea and vomiting. Patient states that he has GERD and has been taking Pepcid for the past 1 year on and off. So he thought his epigastric pain was because of his GERD and took his PPI. But when he went to bed he could not sleep and he threw up 6-7 times. Initially it was mostly the food that he ate and eventually it was yellow liquid. Patient states pain is mostly in the epigastric area and on the right upper quadrant, 7 x 10 in intensity. He denies having any fevers chills or rigors. Patient denies having any chest pain or palpitations. No diarrhea or constipation. He denies having any other complaints. In the ER patient had a CAT scan of the abdomen and pelvis showing cholelithiasis and questionable mild gallbladder wall thickening and eventually patient was admitted with surgical consultation. Review of Systems REVIEW OF SYSTEMS: CONSTITUTIONAL: No fever, fatigue or malaise HEENT: No recent visual problems or hearing problems. Denied any sore throat. CARDIOVASCULAR: No chest pain, orthopnea, PND, no palpitations, no syncope. PULMONARY: no cough GASTROINTESTINAL: As per HPI NEUROLOGICAL: Mild headaches, no weakness, no numbness. HEMATOLOGICAL: Denies any bleeding or petechiae. GENITOURINARY: Denies any burning micturition, frequency, or urgency. MUSCULOSKELETAL/RHEUMATOLOGICAL: No joint problems ENDOCRINE: Denies any polyuria or polydipsia. The rest of the 14-point review of systems is negative. Past Medical History Past Medical History: GERD/Reflux History of Any Multi-Drug Resistant Organisms: None Reported Past Surgical History: Orthopedic Surgery Additional Past Surgical History / Comment(s): bilateral knee ARTHROSCOPIC, H YDROCELE Past Anesthesia/Blood Transfusion Reactions: No Reported Reaction Past Psychological History: No Psychological Hx Reported Smoking Status: Never smoker Past Alcohol Use History: Occasional Past Drug Use History: None Reported - Past Family History Mother Family Medical History: No Reported History Medications and Allergies Home Medications Medication Instructions Recorded Confirmed Type Acetaminophen [Children's Tylenol] 320 mg PO Q4H PRN 09/25/20 09/25/20 History Calcium Carbonate [Tums] 1,000 mg PO TID PRN 09/25/20 09/25/20 History Famotidine [Pepcid] 40 mg PO BID 09/25/20 09/25/20 History Magnesium Hydroxide [Milk of 800 mg PO ONCE PRN 09/25/20 09/25/20 History Magnesia] Allergies Allergy/AdvReac Type Severity Reaction Status Date / Time No Known Allergies Allergy Verified 09/25/20 09:12 Physical Exam Vitals: Vital Signs Temp Pulse Pulse Resp BP BP Pulse Ox 09/25/20 04:44 98.1 F 67 16 158/87 99 09/25/20 04:12 97.9 F 62 18 160/95 97 09/25/20 02:05 72 20 149/93 97 09/25/20 00:24 98.1 F 58 L 18 176/111 100 Intake and Output 09/24/20 09/25/20 09/25/20 22:59 06:59 14:59 Intake Total 240 Balance 240 Intake: Intake, IV Titration 240 Amount Sodium Chloride 0.9% 1, 240 000 ml @ 120 mls/hr IV . Q8H20M [facility] Rx#:[id number] Other: Weight 97.522 kg PHYSICAL EXAMINATION: GENERAL: The patient is alert and oriented x3, not in any acute distress. HEENT: Pupils are round and equally reacting to light. EOMI. No scleral icterus. No conjunctival pallor. CARDIOVASCULAR: S1 and S2 present. PULMONARY: Chest is clear to auscultation, no wheezing or crackles. ABDOMEN: Soft, + Tenderness in epigastric and right upper quadrant , normoactive bowel sounds. No palpable organomegaly. MUSCULOSKELETAL: No joint swelling EXTREMITIES: No cyanosis, clubbing. No pedal edema NEUROLOGICAL: Gross neurological examination did not reveal any focal deficits. SKIN: No rashes. Results CBC & Chem 7: 09/25/20 01:00 09/25/20 01:00 Labs: Abnormal Lab Results - Last 24 Hours (Table) 09/25/20 09/25/20 09/25/20 Range/Units 01:00 01:00 01:00 WBC 13.1 H (3.8-10.6) k/uL Neutrophils # 12.0 H (1.3-7.7) k/uL Lymphocytes # 0.7 L (1.0-4.8) k/uL Glucose 130 H (74-99) mg/dL Urine Protein Trace H (Negative) Urine Ketones 3+ H (Negative) Thrombosis Risk Factor Assmnt - Choose All That Apply Any of the Below Risk Factors Present?: No Other Risk Factors: No Other congenital or acquired thrombophilia - If yes, enter type in comment: No Thrombosis Risk Factor Assessment Level: Very Low Risk Assessment and Plan Assessment: ASSESSMENT Intractable abdominal pain Nausea and vomiting Leukocytosis Chronic GERD Cholelithiasis PLAN: Patient had CT scan of the abdomen and ultrasound of the gallbladder showing cholelithiasis, surgery has been consulted. Continue symptomatic management with IV fluids, antiemetics and Protonix. We will repeat a.m. labs. Further recommendations depending on the progress of the patient.
[2020-09-26] MEDS: SODIUM CHLORIDE 0.9% 1,000 ML IV SCH ×3 (04:52→17:54)
[2020-09-26 07:46] LABS: Basophils # (A) 0.1 k/uL (0-0.2); Basophils % (A) 1 %; Eosinophils # (A) 0.2 k/uL (0-0.7); Eosinophils % (A) 2 %; HCT 43.5 % (39.0-53.0); HGB 15.3 gm/dL (13.0-17.5); Lymphocytes # (A) 0.9 k/uL (1.0-4.8); Lymphocytes % (A) 9 %; MCH 30.3 pg (25.0-35.0); MCHC 35.1 g/dL (31.0-37.0); MCV 86.2 fL (80.0-100.0); Monocytes # (A) 0.8 k/uL (0-1.0); Monocytes % (A) 9 %; Neutrophils # (A) 7.6 k/uL (1.3-7.7); Neutrophils % (A) 79 %; Platelet Count 231 k/uL (150-450); RBC 5.05 m/uL (4.30-5.90); RDW 12.5 % (11.5-15.5); WBC 9.6 k/uL (3.8-10.6)
[2020-09-26 08:07] LABS: African American GFR (CKD) >90 (>60 ml/min/1.73 sqM); Anion Gap 8 mmol/L; Blood Urea Nitrogen 7 mg/dL (9-20); Calcium 8.9 mg/dL (8.4-10.2); Carbon Dioxide 22 mmol/L (22-30); Chloride 102 mmol/L (98-107); Glucose 100 mg/dL (74-99); Non-African American GFR(CKD) >90 (>60 ml/min/1.73 sqM); Potassium 4.4 mmol/L (3.5-5.1); Sodium 132 mmol/L (137-145)
[2020-09-26] MEDS: SUCRALFATE 1 GM TAB PO SCH ×4 (08:26→21:40)
[2020-09-26] MEDS: PANTOPRAZOLE 40 MG/10 ML VIAL IV SCH (08:26)
[2020-09-26] MEDS: AMOXIC-POT CLAV 875-125MG 1 EACH TAB PO SCH ×2 (08:26→21:41)
[2020-09-26] MEDS: ACETAMINOPHEN TAB 325 MG TAB PO PRN ×2 (15:23→21:46)
[2020-09-26] MEDS ORDERED: hydrALAZINE HCL 20 MG/ML 1 ML VIAL IVP PRN (17:08)
--- NOTE | 2020-09-26 17:11 | P.PN ---
Subjective Progress Note Date: 09/26/20 Principal diagnosis: Intractable abdominal pain nausea and vomiting Mr. Arias is a 30-year-old male with a past medical history of chronic GERD for the past 1 year on PPI coming in with a chief complaint of epigastric pain associated with nausea and vomiting. Patient states that he has GERD and has been taking Pepcid for the past 1 year on and off. So he thought his epigastric pain was because of his GERD and took his PPI. But when he went to bed he could not sleep and he threw up 6-7 times. Initially it was mostly the food that he ate and eventually it was yellow liquid. Patient states pain is mostly in the epigastric area and on the right upper quadrant, 7 x 10 in intensity. He denies having any fevers chills or rigors. Patient denies having any chest pain or palpitations. No diarrhea or constipation. He denies having any other complaints. In the ER patient had a CAT scan of the abdomen and pelvis showing cholelithiasis and questionable mild gallbladder wall thickening and eventually patient was admitted with surgical consultation. On 09/26/2020- patient was seen and examined at bedside. He still complains of epigastric pain and nausea. He denies having any episodes of vomiting. Patient denies having any chest pain or palpitations. No cough or difficulty in breathing. No fever chills or rigors. No dysuria or hematuria. He is being continued on IV Protonix and sucralfate. He is also on antibiotics in the form of Augmentin. On reviewing vitals temperature of 99.7, heart rate 78, respiratory rate 16, blood pressure 1 71/ 94, saturating at 98% on room air. On reviewing the labs white count of 9.6, hemoglobin 15.3, platelets 231. Sodium 132, potassium 4.4, para 102, by , BUN 7, creatinine 0.73. Active Medications Acetaminophen (Acetaminophen Tab 325 Mg Tab) 650 mg PO Q6HR PRN PRN Reason: Fever and/ or Pain Last Admin: 09/26/20 15:23 Dose: 650 mg Documented by: Amoxicillin/Clavulanate Potassium (Amoxic-Pot Clav 875-125mg 1 Each Tab) 1 each PO Q12HR [facility] Last Admin: 09/26/20 08:26 Dose: 1 each Documented by: Hydromorphone HCl (Hydromorphone 0.5 Mg/0.5 Ml Syringe) 0.5 mg IVP Q3HR PRN PRN Reason: Severe Pain Last Admin: 09/26/20 08:26 Dose: 0.5 mg Documented by: Sodium Chloride (Saline 0.9%) 1,000 mls @ 120 mls/hr IV .Q8H20M [facility] Last Admin: 09/26/20 13:35 Dose: Not Given Documented by: Naloxone HCl (Naloxone 0.4 Mg/Ml 1 Ml Vial) 0.2 mg IV Q2M PRN PRN Reason: Opioid Reversal Ondansetron HCl (Ondansetron 4 Mg/2 Ml Vial) 4 mg IVP Q8HR PRN PRN Reason: Nausea And Vomiting Last Admin: 09/26/20 15:28 Dose: 4 mg Documented by: Pantoprazole Sodium (Pantoprazole 40 Mg/10 Ml Vial) 40 mg IV DAILY [facility] Last Admin: 09/26/20 08:26 Dose: 40 mg Documented by: Sucralfate (Sucralfate 1 Gm Tab) 1 gm PO QID [facility] Last Admin: 09/26/20 12:24 Dose: 1 gm Documented by: Objective - Vital Signs Vital signs: Vital Signs Temp 99.4 F 09/26/20 08:00 Pulse 82 09/26/20 08:00 Resp 16 09/26/20 08:00 BP 155/84 09/26/20 08:00 Pulse Ox 96 09/26/20 08:00 Intake & Output 09/25/20 09/26/20 09/26/20 18:59 06:59 18:59 Intake Total 2080 1650 Balance 2080 1650 Intake: Intake, IV Titration 1440 1000 Amount Sodium Chloride 0.9% 1, 1440 1000 000 ml @ 120 mls/hr IV . Q8H20M [facility] Rx#:[id number] Oral 640 650 Other: # Voids 4 3 - Exam PHYSICAL EXAMINATION: GENERAL: The patient is alert and oriented x3, not in any acute distress. HEENT: Pupils are round and equally reacting to light. EOMI. No scleral icterus. No conjunctival pallor. CARDIOVASCULAR: S1 and S2 present. PULMONARY: Chest is clear to auscultation, no wheezing or crackles. ABDOMEN: Soft, + Tenderness in epigastric and right upper quadrant , normoactive bowel sounds. No palpable organomegaly. MUSCULOSKELETAL: No joint swelling EXTREMITIES: No cyanosis, clubbing. No pedal edema NEUROLOGICAL: Gross neurological examination did not reveal any focal deficits. SKIN: No rashes. - Labs CBC & Chem 7: 09/26/20 07:12 09/26/20 07:12 Labs: Abnormal Lab Results - Last 24 Hours (Table) 09/26/20 09/26/20 Range/Units 07:12 07:12 Lymphocytes # 0.9 L (1.0-4.8) k/uL Sodium 132 L (137-145) mmol/L BUN 7 L (9-20) mg/dL Glucose 100 H (74-99) mg/dL Assessment and Plan Assessment: ASSESSMENT Intractable abdominal pain Nausea and vomiting Leukocytosis Chronic GERD Cholelithiasis PLAN: Patient had CT scan of the abdomen and ultrasound of the gallbladder showing cholelithiasis, surgery has been consulted, no surgical intervention planned. Continue symptomatic management with IV fluids, antiemetics and Protonix. Patient still having epigastric pain and nausea. Patient mentions about having a colonoscopy done last year for blood in his stool. But he never had an upper endoscopy done. So we will consult GI for possible upper endoscopy. Further recommendations depending on the progress of the patient.
--- NOTE | 2020-09-26 20:44 | P.PN ---
Subjective Progress Note Date: 09/26/20 Patient feeling much better. No complaints. No nausea since dilaudid was stopped Objective - Vital Signs Vital signs: Vital Signs Temp 98.9 F 09/26/20 11:22 Pulse 74 09/26/20 11:22 Resp 16 09/26/20 11:22 BP 156/87 09/26/20 11:22 Pulse Ox 96 09/26/20 11:22 Intake & Output 09/26/20 09/26/20 09/27/20 06:59 18:59 06:59 Intake Total 1650 Balance 1650 Intake: Intake, IV Titration 1000 Amount Sodium Chloride 0.9% 1, 1000 000 ml @ 120 mls/hr IV . Q8H20M [facility] Rx#:[id number] Oral 650 Other: # Voids 3 - Constitutional General appearance: Present: cooperative - Respiratory Details: nonlabored - Gastrointestinal Gastrointestinal Comment(s): S/NT/ND - Labs CBC & Chem 7: 09/26/20 07:12 09/26/20 07:12 Labs: Abnormal Lab Results - Last 24 Hours (Table) 09/26/20 09/26/20 Range/Units 07:12 07:12 Lymphocytes # 0.9 L (1.0-4.8) k/uL Sodium 132 L (137-145) mmol/L BUN 7 L (9-20) mg/dL Glucose 100 H (74-99) mg/dL Assessment and Plan Assessment: Exacerbation of GERD and esophagitis Plan: Stable from surgical standpoint he can follow up as outpatient
[2020-09-27] MEDS: SODIUM CHLORIDE 0.9% 1,000 ML IV SCH (02:00)
[2020-09-27 05:58] VITALS: BP 114/64; PULSE 78; RESP 18; TEMP 98.6
[2020-09-27 06:49] LABS: Basophils # (A) 0.1 k/uL (0-0.2); Basophils % (A) 1 %; Eosinophils # (A) 0.4 k/uL (0-0.7); Eosinophils % (A) 6 %; HCT 42.5 % (39.0-53.0); HGB 14.4 gm/dL (13.0-17.5); Lymphocytes # (A) 1.5 k/uL (1.0-4.8); Lymphocytes % (A) 21 %; MCH 29.8 pg (25.0-35.0); MCHC 33.9 g/dL (31.0-37.0); Mean Platelet Volume 7.8; Monocytes # (A) 0.9 k/uL (0-1.0); Monocytes % (A) 12 %; Neutrophils # (A) 4.2 k/uL (1.3-7.7); Neutrophils % (A) 58 %; Platelet Count 205 k/uL (150-450); RBC 4.83 m/uL (4.30-5.90); RDW 12.7 % (11.5-15.5); WBC 7.2 k/uL (3.8-10.6)
[2020-09-27 07:07] LABS: African American GFR (CKD) >90 (>60 ml/min/1.73 sqM); Anion Gap 5 mmol/L; Blood Urea Nitrogen 7 mg/dL (9-20); Calcium 8.7 mg/dL (8.4-10.2); Carbon Dioxide 28 mmol/L (22-30); Chloride 103 mmol/L (98-107); Glucose 90 mg/dL (74-99); Non-African American GFR(CKD) >90 (>60 ml/min/1.73 sqM); Potassium 4.2 mmol/L (3.5-5.1); Sodium 136 mmol/L (137-145)
[2020-09-27] MEDS: ONDANSETRON 4 MG/2 ML VIAL IVP PRN (07:37)
[2020-09-27] MEDS: PANTOPRAZOLE 40 MG/10 ML VIAL IV SCH (07:37)
[2020-09-27] MEDS: SUCRALFATE 1 GM TAB PO SCH (07:37)
[2020-09-27] MEDS: AMOXIC-POT CLAV 875-125MG 1 EACH TAB PO SCH (07:37)
--- NOTE | 2020-09-27 08:20 | P.DS ---
Providers Date of admission: 09/25/20 02:25 Attending physician: Isaias Nguyen Consults: 09/25/20 02:22 Consult Physician Routine Consulting Provider: Miquel Milton Consult Reason/Comments: possible calculous cholecystitis Do you want consulting provider notified?: Yes, Notify in am 09/26/20 15:04 Consult Physician Routine Consulting Provider: Ranjith Monique Consult Reason/Comments: n/v possible scope Do you want consulting provider notified?: Yes Primary care physician: Isaias Nguyen Hospital Course: This discharge summary 3-year-old white male essentially admitted for abdominal pain. Found to have cholelithiasis underlying history of reflux esophagitis. Surgery has essentially signed off on the patient and we will do appropriate scanning as an outpatient. Patient Condition at Discharge: Stable Plan - Discharge Summary Discharge Rx Participant: No New Discharge Prescriptions: No Action Magnesium Hydroxide [Milk of Magnesia] 800 mg PO ONCE PRN PRN Reason: Heartburn Famotidine [Pepcid] 40 mg PO BID Calcium Carbonate [Tums] 1,000 mg PO TID PRN PRN Reason: Heartburn Acetaminophen [Children's Tylenol] 320 mg PO Q4H PRN PRN Reason: Pain Or Fever > 100.5 Discharge Medication List Acetaminophen [Children's Tylenol] 320 mg PO Q4H PRN 09/25/20 [History] Calcium Carbonate [Tums] 1,000 mg PO TID PRN 09/25/20 [History] Famotidine [Pepcid] 40 mg PO BID 09/25/20 [History] Magnesium Hydroxide [Milk of Magnesia] 800 mg PO ONCE PRN 09/25/20 [History] Follow up Appointment(s)/Referral(s): Isaias Nguyen MD [Primary Care Provider] - 1-2 days Discharge Disposition: HOME SELF-CARE
[2020-09-27] MEDS ORDERED: PANTOPRAZOLE 40 MG TABLET PO SCH (17:30)
--- NOTE | 2020-09-27 20:35 | CONS ---
CONSULTATION DATE OF DICTATION: 09/27/2020 REASON FOR CONSULTATION: Severe epigastric pain. HISTORY OF PRESENT ILLNESS: The patient is a 30-year-old pleasant white male with longstanding history of GERD, presently on Protonix 40 mg twice daily. He was admitted to the hospital with severe epigastric pain associated with nausea, vomiting. The pain continued to progressively get worse and he had multiple episodes of nausea and vomiting on Sunday night and hence came into the emergency room. He was subsequently admitted to the hospital. He denies any fever, chills or night sweats. He never had these symptoms in the past. He does have longstanding history of GERD for several years' duration and he is maintained on Protonix 40 mg twice daily. In the emergency room he did have a CT of the abdomen and pelvis done that showed evidence of cholelithiasis with mild gallbladder wall thickening, and hence Dr. Milton was consulted. The patient is feeling better today. He still has some persistent epigastric pain. On a clear liquid diet, tolerating well. No fever, chills or night sweats. PAST MEDICAL HISTORY: Significant for GERD. PAST SURGICAL HISTORY: Bilateral knee arthroscopies. MEDICATIONS: Medications at home include Tums, Protonix, Tylenol and milk of magnesia. ALLERGIES: NONE. SOCIAL HISTORY: No smoking. No alcohol use. FAMILY HISTORY: Unremarkable. REVIEW OF SYSTEMS: CARDIOPULMONARY: No chest pain or shortness of breath. GENITOURINARY: No dysuria or hematuria. MUSCULOSKELETAL: Unremarkable. SKIN: Unremarkable. ENDOCRINE: Unremarkable. PSYCHIATRIC: Unremarkable. NEUROLOGY: Unremarkable. ENT/VISION: Unremarkable. CONSTITUTIONAL: No recent weight loss. No fever, chills, night sweats. PHYSICAL EXAMINATION: Blood pressure 114/64, pulse rate 78, temperature 98.6. HEENT examination unremarkable. Conjunctivae pink. Sclerae anicteric. Oral cavity no lesions. NECK: No JVD or lymph node enlargement. CHEST: Clear to auscultation. HEART: Regular rate and rhythm. ABDOMEN: Soft. Some tenderness in the epigastric area. Bowel sounds are positive. EXTREMITIES: No pedal edema. NEUROLOGIC: Alert and oriented x3. No focal deficits. LABS: WBC 7.2, hemoglobin 14.4, platelets normal. Basic metabolic panel is within normal limits. Coronavirus PCR is negative. AST, ALT, T-bilirubin and alkaline phosphatase are normal. Amylase and lipase are normal. IMPRESSION: 1. This is a patient who presented to the hospital with acute onset of severe epigastric pain radiating to the right upper quadrant area associated with nausea and vomiting. CT scan of the abdomen showed evidence of gallstones and mild thickening of the gallbladder wall. Seen by Dr. Milton and is planning to proceed with outpatient gallbladder surgery. 2. Longstanding history of gastroesophageal reflux disease. On Protonix 40 mg twice daily. RECOMMENDATIONS: 1. Continue with Protonix 40 mg twice daily. 2. Briefly educated the patient about diet modification and anti-reflux measures. 3. Follow up with Dr. Milton on an outpatient basis. We will also see him in the office in 2 weeks. Thank you for this consultation. MMODL / IJN: [id number] /
== END 2020-09-27 14:31 | disposition home or self-care (01) ==
LOC: EC 00:24 → 5NMEDONC 02:25
PROVIDERS: ADMIT Family Medicine; ATTEND Family Medicine
DX: K80.20 Calculus of gallbladder without cholecystitis without obstruction (principal); K21.00 Gastro-esophageal reflux disease with esophagitis, without bleeding; D72.829 Elevated white blood cell count, unspecified; Z79.899 Other long term (current) drug therapy; Z20.822 Contact with and (suspected) exposure to COVID-19
CPT/HCPCS: 96376 ×2; 96361 ×3; 96375 ×2; 96374; 99285; 36415; 80053; 80048 ×2; 82150; 83690; 85025 ×3; 81003; 87635; 76705; 74177; G0378 ×3; J2270; J2405 ×3; C9113 ×3; J1170 ×2; Q9967

== ENCOUNTER → 2020-10-08 | Outpatient (CLI) | payer BC ==
--- NOTE | 2020-10-08 14:55 | NM ---
EXAMINATION TYPE: NM hepatobiliary w EF DATE OF EXAM: 10/08/2020 COMPARISON: Ultrasound 09/25/2020 HISTORY: 30-year-old male K80.20, calculus of the gallbladder without cholecystitis TECHNIQUE: After the intravenous administration of 4.69 mCi Tc 99m Mebrofenin hepatobiliary scintigra phy is performed. Immediate images post injection. FINDINGS: There is satisfactory initial accumulation of tracer by the liver. The gallbladder is not visualized within the 3 hours of imaging. At this point, no residual tracer remains in the liver for excretion into the biliary system. The small bowel activity is noted within 10 minutes. IMPRESSION: Normal uptake of tracer by the liver and normal accumulation in the bowel. Gallbladder is nonvisualiz ed up to 3 hours. Unable to exclude cystic duct obstruction. These findings are seen with acute keya cystitis. Further clinical correlation recommended.
== END ==
LOC: RADNMMAIN 06:59
PROVIDERS: ATTEND Family Medicine
DX: K80.00 Calculus of gallbladder with acute cholecystitis without obstruction (principal)
CPT/HCPCS: 78226; A9537